=== PATIENT | male | born 1980 | race African-American/Black ===

== ENCOUNTER 2017-08-28 11:19 | Emergency (ER) | payer OTHER, SELFPAY ==
[2017-08-28] MEDS ORDERED: Ketorolac Tromethamine 60 MG/2 ML VIAL ONE (12:18)
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
== END 2017-08-28 14:26 | disposition home or self-care (01) ==
LOC: ERS 11:19
DX: S39.012A Strain of muscle, fascia and tendon of lower back, initial encounter (principal); S16.1XXA Strain of muscle, fascia and tendon at neck level, initial encounter; F17.210 Nicotine dependence, cigarettes, uncomplicated; V43.53XA Car driver injured in collision with pick-up truck in traffic accident, initial encounter
CPT/HCPCS: 72100; 72125; 96372; J1885

== ENCOUNTER 2018-04-30 18:52 | Emergency (ER) | payer SELFPAY | END 2018-04-30 19:04 | disposition home or self-care (01) | LOC: ERS 18:52 | DX: S90.862A Insect bite (nonvenomous), left foot, initial encounter (principal); F17.210 Nicotine dependence, cigarettes, uncomplicated; W57.XXXA Bitten or stung by nonvenomous insect and other nonvenomous arthropods, initial encounter | CPT/HCPCS: 99283 ==

== ENCOUNTER 2020-07-17 05:38 | Emergency (ER) | payer SELFPAY ==
[2020-07-17 06:39] LABS: #Eosinphils 0.2 thou/uL (0.0-0.7); #Lymphocytes 1.3 thou/uL (1.20-3.40); #Monocytes 0.6 thou/uL (0.11-0.59); #Neutrophils 2.5 thou/uL (1.40-6.50); %Basophils 0.9 % (0.0-1.0); %Eosinophils 4.8 % (0.0-10.0); %Lymphocytes 27.6 % (21.0-51.0); %Monocytes 12.7 % (0.0-10.0); %Neutrophils 53.9 % (42.0-75.0); Hemoglobin 14.6 g/dL (14.0-18.0); Mean Corpuscular HGB CONC 34.1 g/dL (32.0-36.0); Mean Corpuscular Hemoglobin 30.5 pg (27.0-31.0); Mean Corpuscular Volume 89.5 fL (78.0-98.0); Mean Platelet Volume 8.3 fL (7.4-10.4); Platelet Count 180 thou/uL (130-400); Red Blood Cell (RBC) Count 4.78 mill/uL (4.70-6.10); White Blood Cell (WBC) Count 4.7 thou/uL (4.8-10.8)
[2020-07-17 06:58] LABS: ALT (SGPT) 25 U/L (8-55); AST (SGOT) 25 U/L (5-34); Albumin 4.1 g/dL (3.5-5.0); Alkaline Phosphatase 50 U/L (40-110); Anion Gap 11 mmol/L (10-20); BUN (Urea Nitrogen) 10 mg/dL (8.9-20.6); Bilirubin, Total 1.1 mg/dL (0.2-1.2); Calc. Creatinine Clearance 0 mL/min (70-130); Calcium 9.3 mg/dL (7.8-10.44); Carbon Dioxide 29 mmol/L (22-29); Chloride 103 mmol/L (98-107); Estimated GFR-MDRD 67; Globulin 2.9 g/dL (2.4-3.5); Glucose 98 mg/dL (70-105); Potassium 4.2 mmol/L (3.5-5.1); Sodium 139 mmol/L (136-145)
--- NOTE | 2020-07-17 08:02 | RAD ---
XR Chest 1 View Portable HISTORY: Chest pain COMPARISON: 03/04/2015 FINDINGS: The heart size is normal. The lungs are well expanded without focal areas of consolidation, pneumothorax or pleural effusions. IMPRESSION: No radiographic evidence of acute cardiopulmonary process.
--- NOTE | 2020-07-20 12:44 | EKG ---
Test Reason : Blood Pressure : / mmHG Vent. Rate : 058 BPM Atrial Rate : 058 BPM P-R Int : 194 ms QRS Dur : 086 ms QT Int : 394 ms P-R-T Axes : 049 018 046 degrees QTc Int : 386 ms Sinus bradycardia Nonspecific T wave abnormality Abnormal ECG Confirmed by CHANO MERCER ([id number]), editorial project manager VIVIANE BUSCH ([id number]) on 07/20/2020 12:44:31 PM Referred By: Confirmed By:CHANO MERCER
== END 2020-07-17 07:30 | disposition home or self-care (01) ==
LOC: ERS 05:38
DX: R07.9 Chest pain, unspecified (principal)
CPT/HCPCS: 36415; 71045; 80053; 84484; 85025; 93005

== ENCOUNTER 2022-06-19 10:41 | Outpatient (CLI) | payer BC | END 2022-06-19 10:42 | disposition home or self-care (01) | LOC: BICCT 10:41 | PROVIDERS: ATTEND Family Medicine | DX: G44.211 Episodic tension-type headache, intractable (principal) | CPT/HCPCS: 70450 ==